=== PATIENT | female | born 1970 | race African-American/Black ===

== ENCOUNTER 2018-08-10 15:55 | Emergency (ER) | payer MEDICARE, OTHER ==
[~2018-08-10] VITALS: Ht 149.9 cm; Wt 83.9 kg
--- OUTSIDE RECORDS SUMMARY | 2018-08-10 15:57 | XMS REPORT | Clinical Summary ---
Author Author ABBIE [facility] Address Unknown Phone Unavailable Care Team Providers Care Chain Link Fence Installer Name Role Phone Helen Gama NP PCP Allergies No Known Allergies Medications End Date Status Medication Sig Dispensed Refills Start Date Active simvastatin (ZOCOR) 20 MG Take 20 mg by 0 tablet mouth nightly. Active albuterol HFA (VENTOLIN Inhale 1 puff 0 HFA) 90 mcg/actuation by mouth via inhaler inhaler every 6 (six) hours as needed for Wheezing. Active lisinopril Take 10 mg by 0 (PRINIVIL,ZESTRIL) 10 MG mouth daily. tablet Active Problems Not on file Family History Medical History Relation Name Comments Cancer Father Hypertension Father Hypertension Mother Relation Name Status Comments Father Mother Social History Date Tobacco Use Types Packs/Day Years Used Never Smoker 0.5 10 Alcohol Use Drinks/Week oz/Week Comments No Sex Assigned at Date Recorded Not on file Industry Job Start Date Occupation Not on file Not on file Not on file Travel End Travel History Travel Start No recent travel history available. Last Filed Vital Signs Not on file Plan of Treatment Not on file Results Not on fileafter 08/09/2017 Insurance Payer Benefit Subscriber ID Type Phone Address Plan / Group [employer] [facility] [employer] x[employer] [place] [place]
--- OUTSIDE RECORDS SUMMARY | 2018-08-10 15:57 | XMS REPORT ---
Author Author [facility] Address Unknown Phone Unavailable Care Team Providers Care Visual Associate Name Role Phone CHRISTI LAWLER Unavailable Unavailable Problems This patient has no known problems. Allergies, Adverse Reactions, Alerts This patient has no known allergies or adverse reactions. Medications This patient has no known medications. Results Test Description Test Time Test Comments Text Results Atomic Results Result Comments BASIC METABOLIC PANEL 2017-01-08 17:49:00 SODIUM (BEAKER) (test ytdu=521) 138 meq/L 135-148 POTASSIUM (BEAKER) (test cmyr=964) 3.9 meq/L 3.6-5.5 CHLORIDE (BEAKER) (test ttnv=352) 98 meq/L 98-106 CO2 (BEAKER) (test onvo=119) 28 meq/L 24-32 BLOOD UREA NITROGEN (BEAKER) (test dfxb=815) 9 mg/dL 10-26 CREATININE (BEAKER) (test lqsv=799) 0.84 mg/dL 0.50-1.20 GLUCOSE RANDOM (BEAKER) (test zyuk=148) 102 mg/dL 70-110 CALCIUM (BEAKER) (test pyab=763) 9.3 mg/dL 8.5-10.5 EGFR (BEAKER) (test sceq=6621) 88 mL/min/1.73 sq m ESTIMATED GFR IS NOT ACCURATE CREATININE CLEARANCE IN PREDICTING GLOMERULAR FILTRATION RATE. ESTIMATED GFR IS NOT APPLICABLE FOR DIALYSIS PATIENTS. HEPATIC FUNCTION [id number] 17:49:00* Test Item Value Reference Range Comments TOTAL PROTEIN (BEAKER) (test gzwf=511) 8.1 gm/dL 6.0-8.5 ALBUMIN (BEAKER) (test unsr=3948) 4.3 g/dL 3.5-5.0 BILIRUBIN TOTAL (BEAKER) (test mein=680) 0.4 mg/dL 0.1-1.2 BILIRUBIN DIRECT (BEAKER) (test glyo=121) 0.4 mg/dL 0.0-0.4 ALKALINE PHOSPHATASE (BEAKER) (test nrbx=498) 99 U/L 30-115 AST (SGOT) (BEAKER) (test hdsw=361) 36 U/L 5-40 ALT (SGPT) (BEAKER) (test rkwu=358) 7 U/L 5-50 [id number] 17:49:00* Test Item Value Reference Range Comments LIPASE (BEAKER) (test cujr=398) 46 U/L 40-240 PT/[id number] 17:45:00* Test Item Value Reference Range Comments PROTIME (BEAKER) (test wrah=457) 9.7 seconds 9.8-12.0 INR (BEAKER) (test qlfr=765) 0.9 <=5.9 PARTIAL THROMBOPLASTIN TIME (BEAKER) (test zpyu=414) 24.2 seconds 25.8-34.5 RECOMMENDED COUMADIN/WARFARIN INR THERAPY RANGESSTANDARD DOSE: 2.0 - 3.0 Inclu parish: PROPHYLAXIS for venous thrombosis, systemic embolization; TREATMENT for carol ous thrombosis and/or pulmonary embolus.HIGH RISK: Target INR is 2.5-3.5 for pat ients with mechanical heart valves.URINALYSIS W/ [id number] 17:41:00 * Test Item Value Reference Range Comments COLOR (BEAKER) (test mixs=048) Light Yellow CLARITY (BEAKER) (test zqlu=168) Clear SPECIFIC GRAVITY UA (BEAKER) (test pnzu=591) 1.005 1.001-1.035 PH UA (BEAKER) (test hocg=183) 5.0 5.0-8.0 PROTEIN UA (BEAKER) (test rzwx=848) Negative Negative GLUCOSE UA (BEAKER) (test jyvd=670) Negative Negative KETONES UA (BEAKER) (test cbhx=977) Negative Negative BILIRUBIN UA (BEAKER) (test cscw=353) Negative Negative BLOOD UA (BEAKER) (test wfyg=452) Trace Negative NITRITE UA (BEAKER) (test opsy=117) Negative Negative LEUKOCYTE ESTERASE UA (BEAKER) (test yodv=832) Negative Negative UROBILINOGEN UA (BEAKER) (test usqf=822) 0.2 mg/dL 0.2-1.0 BACTERIA (BEAKER) (test nedy=474) Rare RBC UA-MANUAL (BEAKER) (test vkoe=7591) <5 /HPF WBC UA-MANUAL (BEAKER) (test kppj=2611) <5 /HPF SQUAMOUS EPITHELIAL MANUAL (BEAKER) (test wgrh=8776) <5 /HPF SOURCE(BEAKER) (test xnov=4597) SCREEN, [id number] 17:37:00* Test Item Value Reference Range Comments TEST URINE (BEAKER) (test gpsb=007) Negative CBC W/PLT COUNT & AUTO [id number] 17:30:00* Test Item Value Reference Range Comments WHITE BLOOD CELL COUNT (BEAKER) (test irps=187) 10.5 10e3/ L 4.0-10.0 RED BLOOD CELL COUNT (BEAKER) (test dtrr=441) 5.20 10e6/ L 4.00-5.00 HEMOGLOBIN (BEAKER) (test afiw=833) 14.1 g/dL 12.0-15.0 HEMATOCRIT (BEAKER) (test lldz=463) 44.1 % 36.0-45.0 MEAN CORPUSCULAR VOLUME (BEAKER) (test vfmt=478) 84.8 fL 82.0-99.0 MEAN CORPUSCULAR HEMOGLOBIN (BEAKER) (test ckcd=331) 27.0 pg 27.0-33.0 MEAN CORPUSCULAR HEMOGLOBIN CONC (BEAKER) (test zehy=321) 31.9 g/dL 32.0-36.0 RED CELL DISTRIBUTION WIDTH (BEAKER) (test qpar=862) 13.8 % 10.3-14.2 PLATELET COUNT (BEAKER) (test uqqj=162) 234 10e3/ L 150-430 MEAN PLATELET VOLUME (BEAKER) (test oaez=055) 8.5 fL 6.5-10.5 NEUTROPHILS RELATIVE PERCENT (BEAKER) (test fyww=393) 72 % LYMPHOCYTES RELATIVE PERCENT (BEAKER) (test isys=507) 22 % MONOCYTES RELATIVE PERCENT (BEAKER) (test asax=172) 5 % EOSINOPHILS RELATIVE PERCENT (BEAKER) (test nvep=599) 1 % BASOPHILS RELATIVE PERCENT (BEAKER) (test ucjh=972) 1 % NEUTROPHILS ABSOLUTE COUNT (BEAKER) (test ppxb=216) 7.54 10e3/ L 1.80-8.00 LYMPHOCYTES ABSOLUTE COUNT (BEAKER) (test ydbh=228) 2.29 10e3/ L 1.48-4.50 MONOCYTES ABSOLUTE COUNT (BEAKER) (test bayk=129) 0.47 10e3/ L 0.00-1.30 EOSINOPHILS ABSOLUTE COUNT (BEAKER) (test msia=871) 0.12 10e3/ L 0.00-0.50 BASOPHILS ABSOLUTE COUNT (BEAKER) (test llbn=199) 0.07 10e3/ L 0.00-0.20
[2018-08-10] MEDS ORDERED: ONDANSETRON HCL INJ 2MG/ML 2ML 2 MG/ML VIAL IV STA (16:15)
[2018-08-10] MEDS ORDERED: SODIUM CHLORIDE 0.9% 1000ML 1,000 ML IV SCH (16:15)
[2018-08-10] MEDS ORDERED: KETOROLAC TROMETHAMINE 30 MG/ML VIAL IV NR (16:30)
--- NOTE | 2018-08-10 16:53 | Diagnostic Imaging Report ---
EXAM: CXR 2 VIEW - HOPD, PA and lateral DATE: 08/10/2018 Time stamp on exam: 4:31 PM INDICATION: Cough COMPARISON: None FINDINGS: LINES/TUBES: None LUNGS: No consolidations or edema. PLEURA: No effusions or pneumothorax. HEART AND MEDIASTINUM: Normal size and contour. BONES AND SOFT TISSUES: No acute findings. IMPRESSION: No acute thoracic abnormality. Signed by: Dr. Lopez Goel DO on 08/10/2018 4:49 PM
[2018-08-10 17:39] VITALS: BP 159/99
== END 2018-08-10 17:46 | disposition home or self-care (01) ==
LOC: FSED 15:55
DX: R11.2 Nausea with vomiting, unspecified (principal); R19.7 Diarrhea, unspecified; R05 Cough; A08.4 Viral intestinal infection, unspecified; E86.0 Dehydration; B34.9 Viral infection, unspecified; I10 Essential (primary) hypertension; E78.00 Pure hypercholesterolemia, unspecified
CPT/HCPCS: 71046; 80053; 81003; 85025; 99284; J2405

== ENCOUNTER 2022-10-09 08:37 | Emergency (ER) | payer MEDICARE, OTHER ==
[~2022-10-09] VITALS: Ht 149.9 cm; Wt 103.9 kg
[~2022-10-09 08:37] MED LIST: AMOXICILLIN500 MG PO; NAPROSYN500 MG PO; ONDANSETRON ODT8 MG PO
[2022-10-09 08:48] VITALS: O2SAT 100
[2022-10-09] MEDS ORDERED: FLUORESCEIN SOD(OPTH) 1 MG STRP OP ONE (09:00)
[2022-10-09] MEDS ORDERED: TETRACAINE HCL 0.5% OPTH SOLN 4 ML BTL OP ONE (09:00)
[2022-10-09] MEDS ORDERED: TETRACAINE HCL 0.5% OPTH SOLN 4 ML BTL ONE (09:05)
[2022-10-09] MEDS ORDERED: ERYTHROMYCIN (OPTH) 3.5 GM OINT OP ONE ×2 (09:06→09:15)
[2022-10-09] MEDS ORDERED: FLUORESCEIN SOD(OPTH) 1 MG STRP ONE (09:06)
[2022-10-09] MEDS ORDERED: NAPROXEN375 MG PO (09:07)
[2022-10-09] MEDS ORDERED: DIPHENHYDRAMINE25 MG PO (09:07)
== END 2022-10-09 09:15 | disposition home or self-care (01) ==
LOC: FSED 08:43
DX: S05.01XA Injury of conjunctiva and corneal abrasion without foreign body, right eye, initial encounter (principal); X58.XXXA Exposure to other specified factors, initial encounter; Y92.89 Other specified places as the place of occurrence of the external cause; I10 Essential (primary) hypertension; E11.9 Type 2 diabetes mellitus without complications; E78.5 Hyperlipidemia, unspecified; F41.9 Anxiety disorder, unspecified; G47.00 Insomnia, unspecified
CPT/HCPCS: 99283

== ENCOUNTER 2024-08-29 12:36 | Inpatient (IN) | payer MEDICARE ==
[~2024-08-29] VITALS: Ht 149.9 cm; Wt 102.5 kg
[~2024-08-29 12:36] MED LIST changes: +CLONIDINE HCL0.1 MG PO; +DIPHENHYDRAMINE25 MG PO; +FAMOTIDINE20 MG PO; +HYDROCODON-ACE1 EAC9 PO; +METFORMIN HCL500 MG PO; +MIRTAZAPINE45 MG; +NAPROXEN375 MG PO; +SEROQUEL100 MG PO; +SIMVASTATIN40 MG PO; +ZESTRIL10 MG PO
[2024-08-29] MEDS: ACETAMINOPHEN 325 MG TAB PO ONE ×2 (13:12→17:53)
[2024-08-29] MEDS ORDERED: KETOROLAC TROMETHAMINE 30 MG/ML VIAL IM STA (13:41)
[2024-08-29] MEDS ORDERED: IBUPROFEN 600 MG TAB ONE (13:46)
[2024-08-29] MEDS: IBUPROFEN 600 MG TAB PO STA (13:55)
[2024-08-29] MEDS: SODIUM CHLORIDE 0.9% 1000ML 1,000 ML IV ONE ×2 (15:15)
[2024-08-29] MEDS: SODIUM CHLORIDE 0.9% 1000ML 1,000 ML IV SCH (15:42)
[2024-08-29 15:57] VITALS: PULSE 107; RESP 18; TEMP 99.2
[2024-08-29] MEDS ORDERED: ACETAMINOPHEN 325 MG TAB ONE (16:08)
[2024-08-29] MEDS: CHLORASEPTIC SPRAY 177 ML BTL MM PRN (20:13)
[2024-08-29] MEDS: HYDROCODONE/APAP 5MG-325MG TAB PO PRN (20:15)
[2024-08-29 21:19] VITALS: BP 114/78; PULSE 97; RESP 18; TEMP 97.3; O2SAT 100
[2024-08-29 21:27] LABS: CREATINE KINASE 108 IU/L (29-168)
[2024-08-29 21:30] VITALS: BP 114/78; PULSE 97; RESP 18; TEMP 97.3; O2SAT 100
[2024-08-29 22:03] LABS: TROPONIN I < 0.001 ng/mL (0-0.300)
[2024-08-30] VITALS (10 sets, daily range): BP systolic 102–162; BP diastolic 64–92; PULSE 62–114; RESP 18–20; TEMP 97.3–99.6; O2SAT 97–100
[2024-08-30] MEDS ORDERED: ONDANSETRON HCL INJ 2MG/ML 2ML 2 MG/ML VIAL IV PRN (00:45)
[2024-08-30] MEDS ORDERED: POTASSIUM CHLORIDE 20 MEQ TAB CR PO PRN (00:45)
[2024-08-30] MEDS ORDERED: DEXTROSE 50% SYRINGE 50 ML IV PRN (00:45)
[2024-08-30] MEDS ORDERED: HYDRALAZINE HCL 20 MG/ML VIAL IV PRN (00:45)
[2024-08-30] MEDS ORDERED: DOCUSATE SODIUM 100 MG CAP PO PRN (00:45)
[2024-08-30] MEDS ORDERED: SIMETHICONE 80 MG CHEW PO PRN (00:45)
[2024-08-30] MEDS ORDERED: DIPHENHYDRAMINE HCL 25 MG CAP PO PRN (00:45)
[2024-08-30] MEDS ORDERED: ALBUTEROL/IPRATROPIUM 3 ML NEB NEB PRN (00:45)
[2024-08-30] MEDS ORDERED: MELATONIN 5 MG TABLET PO PRN (00:45)
[2024-08-30] MEDS ORDERED: FAMOTIDINE40 MG PO (01:38)
[2024-08-30] MEDS ORDERED: GABAPENTIN600 MG PO (01:38)
[2024-08-30] MEDS ORDERED: TIZANIDINE HCL4 MG PO (01:38)
[2024-08-30] MEDS ORDERED: INDERAL10 MG PO (01:38)
[2024-08-30] MEDS ORDERED: QUETIAPINE FUM100 MG PO (01:38)
[2024-08-30] MEDS ORDERED: SIMVASTATIN40 MG PO (01:38)
[2024-08-30] MEDS ORDERED: QUETIAPINE FUM400 MG PO (01:38)
[2024-08-30] MEDS ORDERED: PANTOPRAZOLE SO40 MG PO (01:38)
[2024-08-30] MEDS ORDERED: DEXTROAMP-AMPHE30 MG PO (01:38)
[2024-08-30] MEDS: LIDOCAINE 4% PATCH TP PRN (04:59)
[2024-08-30] MEDS: ACETAMINOPHEN 325 MG TAB PO PRN (04:59)
[2024-08-30 06:18] LABS: BASOPHILS % 0.2 % (0.0-1.0); EOSINOPHILS % 0.2 % (0.0-6.0); HEMATOCRIT 38.5 % (34.2-44.1); HEMOGLOBIN 12.6 g/dL (12.0-16.0); LYMPHOCYTES % 11.5 % (18.0-39.1); MEAN CORPUSCULAR HEMOGLOBIN 27.9 pg (28-32); MEAN CORPUSCULAR HGB CONC 32.7 g/dL (31-35); MEAN CORPUSCULAR VOLUME 85.2 fL (81-99); MONOCYTES # (AUTO) 1.1 (0.2-0.8); MONOCYTES % 6.4 % (4.4-11.3); NEUTROPHILS % 80.6 % (38.7-80.0); PLATELET COUNT 201 x10e3/uL (140-360); RED BLOOD COUNT 4.52 x10e6/uL (3.6-5.1); RED CELL DISTRIBUTION WIDTH 14.6 % (11.7-14.4); WHITE BLOOD COUNT 17.37 x10e3/uL (4.8-10.8)
[2024-08-30] MEDS ORDERED: IOPAMIDOL 370 MG/ML 100 ML INFUS..BTL INJ ONE (06:21)
[2024-08-30 06:40] LABS: ANION GAP 13.6 mmol/L (8-16); CALCIUM 8.6 mg/dL (8.4-10.2); CREATININE, SERUM 0.74 mg/dL (0.57-1.11); POTASSIUM 3.6 mmol/L (3.5-5.1)
[2024-08-30 07:07] LABS: CREATINE KINASE 134 IU/L (29-168)
[2024-08-30 07:17] LABS: TROPONIN I < 0.001 ng/mL (0-0.300)
[2024-08-30] MEDS: PANTOPRAZOLE SOD 40 MG TABEC PO SCH (08:35)
[2024-08-30] MEDS: KETOROLAC TROMETHAMINE 30 MG/ML VIAL IV PRN (09:16)
[2024-08-30] MEDS: BENZONATATE 100 MG CAP PO PRN (09:16)
[2024-08-30] MEDS: KETOROLAC TROMETHAMINE 30 MG/ML VIAL IV SCH (15:15)
[2024-08-30] MEDS ORDERED: ADDERALL 30 MG30 MG PO (15:22)
[2024-08-30] MEDS: MAALOX/LIDOCAINE/BENADRYL/NYST 30 ML BTL PO SCH (15:51)
[2024-08-30] MEDS: ENOXAPARIN SOD INJ 40 MG/0.4 ML SYR SC SCH (16:36)
[2024-08-30] MEDS ORDERED: KETOROLAC TROMETHAMINE 30 MG/ML VIAL IV SCH (18:00)
[2024-08-31] VITALS (9 sets, daily range): BP systolic 117–137; BP diastolic 69–80; PULSE 74–86; RESP 18; TEMP 97.4–98.3; O2SAT 95–100
[2024-08-31 05:44] LABS: BASOPHILS # (AUTO) 0.1 (0.0-0.1); BASOPHILS % 0.4 % (0.0-1.0); EOSINOPHILS # (AUTO) 0.2 (0.0-0.4); EOSINOPHILS % 1.1 % (0.0-6.0); HEMATOCRIT 39.9 % (34.2-44.1); HEMOGLOBIN 12.8 g/dL (12.0-16.0); LYMPHOCYTES # (AUTO) 1.9 (1.0-3.2); LYMPHOCYTES % 14.1 % (18.0-39.1); MEAN CORPUSCULAR HEMOGLOBIN 28.3 pg (28-32); MEAN CORPUSCULAR HGB CONC 32.1 g/dL (31-35); MEAN CORPUSCULAR VOLUME 88.3 fL (81-99); MONOCYTES % 7.1 % (4.4-11.3); NEUTROPHILS # (AUTO) 10.6 (2.1-6.9); NEUTROPHILS % 76.7 % (38.7-80.0); PLATELET COUNT 177 x10e3/uL (140-360); RED BLOOD COUNT 4.52 x10e6/uL (3.6-5.1); RED CELL DISTRIBUTION WIDTH 14.9 % (11.7-14.4)
[2024-08-31 06:17] LABS: ANION GAP 12.6 mmol/L (8-16); CALCIUM 8.3 mg/dL (8.4-10.2); CREATININE, SERUM 0.69 mg/dL (0.57-1.11); POTASSIUM 3.6 mmol/L (3.5-5.1)
[2024-08-31 13:05] LABS: CORONAVIRUS COVID-19 AG NEGATIVE (NEGATIVE); INFLUENZA A AG NEGATIVE (NEGATIVE); INFLUENZA B AG NEGATIVE (NEGATIVE)
[2024-08-31] MEDS: KETOROLAC TROMETHAMINE 30 MG/ML VIAL IV PRN (17:50)
[2024-08-31] MEDS: Azithromycin IV 500 MG 10 ML VIAL ONE (21:11)
[2024-09-01] VITALS (9 sets, daily range): BP systolic 119–173; BP diastolic 72–92; PULSE 73–86; RESP 14–20; TEMP 97.7–98.2; O2SAT 95–100
[2024-09-01 09:04] LABS: ANION GAP 11.9 mmol/L (8-16); CALCIUM 8.5 mg/dL (8.4-10.2); CREATININE, SERUM 0.7 mg/dL (0.57-1.11); POTASSIUM 3.9 mmol/L (3.5-5.1)
[2024-09-01 09:27] LABS: BASOPHILS % 0.4 % (0.0-1.0); EOSINOPHILS # (AUTO) 0.3 (0.0-0.4); EOSINOPHILS % 3.4 % (0.0-6.0); HEMATOCRIT 38.8 % (34.2-44.1); HEMOGLOBIN 12.4 g/dL (12.0-16.0); LYMPHOCYTES # (AUTO) 2.1 (1.0-3.2); LYMPHOCYTES % 25.3 % (18.0-39.1); MEAN CORPUSCULAR HEMOGLOBIN 27.9 pg (28-32); MEAN CORPUSCULAR VOLUME 87.2 fL (81-99); MONOCYTES # (AUTO) 0.6 (0.2-0.8); MONOCYTES % 6.7 % (4.4-11.3); NEUTROPHILS # (AUTO) 5.3 (2.1-6.9); NEUTROPHILS % 63.6 % (38.7-80.0); PLATELET COUNT 208 x10e3/uL (140-360); RED BLOOD COUNT 4.45 x10e6/uL (3.6-5.1); RED CELL DISTRIBUTION WIDTH 14.7 % (11.7-14.4); WHITE BLOOD COUNT 8.26 x10e3/uL (4.8-10.8)
[2024-09-01] MEDS ORDERED: AMOX TR-K CLV1 EAC2 PO (15:39)
[2024-09-01] MEDS: FOSFOMYCIN TROMETHAMINE 3 GM PACKET PO ONE (16:04)
== END 2024-09-01 16:30 | disposition home or self-care (01) | DRG 872 ==
LOC: FSED 12:44 → ERHOLD 15:18 → MED/SURG3 18:16 → MED/SURG2 08-30 20:31
PROVIDERS: ADMIT Internal Medicine; ATTEND Internal Medicine
PROC: 3E0333Z Introduction of Anti-inflammatory into Peripheral Vein, Percutaneous Approach (ICD-10-PCS; principal; 2024-08-29)
DX: A41.9 Sepsis, unspecified organism (principal); J98.11 Atelectasis; Z68.42 Body mass index [BMI] 45.0-49.9, adult; E11.9 Type 2 diabetes mellitus without complications; J06.9 Acute upper respiratory infection, unspecified; J02.9 Acute pharyngitis, unspecified; I10 Essential (primary) hypertension; E78.5 Hyperlipidemia, unspecified; J43.9 Emphysema, unspecified; K21.9 Gastro-esophageal reflux disease without esophagitis; F41.9 Anxiety disorder, unspecified; F32.A Depression, unspecified; Z11.52 Encounter for screening for COVID-19; E66.01 Morbid (severe) obesity due to excess calories; Z79.84 Long term (current) use of oral hypoglycemic drugs; Z86.73 Personal history of transient ischemic attack (TIA), and cerebral infarction without residual deficits; Z79.890 Hormone replacement therapy; Z87.891 Personal history of nicotine dependence
CPT/HCPCS: 0223U; 36415; 71046; 71260; 80048; 80053; 82550; 83518; 83605; 84484; 85025; 86308; 87040; 87070; 87086; 87186; 87400; 87798; 94799; 99284; J0696; J1650; J1885; J2470; J7030; J7050; Q9967

== ENCOUNTER 2025-01-03 14:16 | Emergency (ER) | payer MEDICARE ==
[~2025-01-03] VITALS: Ht 149.9 cm; Wt 99.4 kg
[~2025-01-03 14:16] MED LIST changes: +ADDERALL 30 MG30 MG PO; +AMOX TR-K CLV1 EAC2 PO; +DEXTROAMP-AMPHE30 MG PO; +FAMOTIDINE40 MG PO; +GABAPENTIN600 MG PO; +INDERAL10 MG PO; +PANTOPRAZOLE SO40 MG PO; +QUETIAPINE FUM100 MG PO; +QUETIAPINE FUM400 MG PO; +TIZANIDINE HCL4 MG PO
[2025-01-03] MEDS ORDERED: CEFDINIR300 MG PO (15:52)
[2025-01-03] MEDS ORDERED: ONDANSETRON ODT4 MG PO (15:52)
[2025-01-03] MEDS ORDERED: IBUPROFEN600 MG PO (15:52)
[2025-01-03] MEDS: SODIUM CHLORIDE 0.9% 1000ML 1,000 ML IV STA (16:43)
[2025-01-03] MEDS: KETOROLAC TROMETHAMINE 30 MG/ML VIAL IV STA (16:44)
[2025-01-03] MEDS: FAMOTIDINE 20 MG/2 ML VIAL IV ONE (16:44)
[2025-01-03] MEDS: ONDANSETRON HCL INJ 2MG/ML 2ML 2 MG/ML VIAL IV ONE (16:44)
[2025-01-03 17:08] VITALS: PULSE 71; RESP 18; TEMP 97.4; O2SAT 96
== END 2025-01-03 17:08 | disposition home or self-care (01) ==
LOC: FSED 14:35
DX: N30.90 Cystitis, unspecified without hematuria (principal); R10.2 Pelvic and perineal pain; D72.829 Elevated white blood cell count, unspecified; I10 Essential (primary) hypertension; E11.9 Type 2 diabetes mellitus without complications; E03.9 Hypothyroidism, unspecified; E78.5 Hyperlipidemia, unspecified; K21.9 Gastro-esophageal reflux disease without esophagitis; Z86.73 Personal history of transient ischemic attack (TIA), and cerebral infarction without residual deficits; G47.00 Insomnia, unspecified; Z79.84 Long term (current) use of oral hypoglycemic drugs
CPT/HCPCS: 74176; 80053; 81003; 81025; 85025; 96374; 96375; 99284; J0696; J1308; J1885; J2405; J7030